=== PATIENT | female | born 1940 | race Caucasian/White ===

== ENCOUNTER → 2016-12-10 | Outpatient (CLI) | payer OTHER ==
[~2016-12-10] MED LIST: ACETAZOLAMIDE250 MG PO; ADVAIR 500-501 EACH INH; ALBUTEROL0.63 MG/3 INH; CALCITRIOL0.25 MCG PO; CELEBREX 200MG200 MG PO; CLARITIN10 M2 PO; CORGARD 40MG TA40 MG PO; COZAAR100 MG PO; DIAMOX 250 MG250 MG PO; ELIQUIS5 MG PO; FERROUS SULFAT325 M2 PO; HYDRALAZINE HCL25 MG PO; KLOR-CON M2020 MEQ PO; LASIX 40 MG TAB40 MG PO; LASIX20 MG PO; LASIX40 MG PO; LEVAQUIN750 MG PO; LISINOPRIL10 MG PO; LOPID TAB 600600 MG PO; LORTAB 5-325 M1 EACH PO; LOSARTAN POTAS100 MG PO; METOPROLOL TART50 MG PO; MIRALAX17 GM PO; MONTELUKAST SOD10 MG PO; MULTAQ400 MG PO; NADOLOL40 MG PO; NEURONTIN 300300 MG PO; NEURONTIN600 MG PO; NORCO 5-325 TA1 EACH PO; NORVASC 5 MG TAB5 MG PO; NORVASC10 MG PO; OMEPRAZOLE40 MG PO; PRILOSEC OTC20 MG PO; PROAIR HFA8.5 GM INH; SPIRIVA18 MCG INH; SULAMYD 10% OP15 ML OP; THERAGRAN M TAB1 EA PO; TYLENOL 325MG325 MG PO; ULTRAM50 MG PO; VENTOLIN/PROVE0.5 ML INH; ZESTRIL20 MG PO
== END ==
LOC: MAMO 09:20
DX: Z12.31 Encounter for screening mammogram for malignant neoplasm of breast (principal); Z80.3 Family history of malignant neoplasm of breast
CPT/HCPCS: 36600; 82803; G0202

== ENCOUNTER 2017-01-25 17:48 | Emergency (ER) | payer OTHER ==
[~2017-01-25 17:48] MED LIST changes: -ACETAZOLAMIDE250 MG PO; -ALBUTEROL0.63 MG/3 INH; -CLARITIN10 M2 PO; -CORGARD 40MG TA40 MG PO; -LEVAQUIN750 MG PO; -LOSARTAN POTAS100 MG PO; -MIRALAX17 GM PO; -NORCO 5-325 TA1 EACH PO; -OMEPRAZOLE40 MG PO; -SULAMYD 10% OP15 ML OP; -ZESTRIL20 MG PO
[2017-01-25 19:21] LABS: RED BLOOD COUNT 3.6 M/UL (4.00-5.10); WHITE BLOOD COUNT 9.8 K/UL (4.5-11.0)
[2017-03-11] MEDS ORDERED: LOSARTAN POTAS100 MG PO (09:48)
[2017-03-11] MEDS ORDERED: CORGARD 40MG TA40 MG PO (09:49)
[2017-03-15] MEDS ORDERED: LEVAQUIN750 MG PO (17:04)
== END 2017-01-25 20:45 | disposition home or self-care (01) ==
LOC: ER1 17:48
PROVIDERS: Physician Assistant
DX: N17.9 Acute kidney failure, unspecified (principal); I12.9 Hypertensive chronic kidney disease with stage 1 through stage 4 chronic kidney disease, or unspecified chronic kidney disease; N18.9 Chronic kidney disease, unspecified; N39.0 Urinary tract infection, site not specified; J18.9 Pneumonia, unspecified organism; J44.9 Chronic obstructive pulmonary disease, unspecified; Z88.0 Allergy status to penicillin; Z99.81 Dependence on supplemental oxygen
CPT/HCPCS: 36415; 70450; 71010; 80053; 81001; 85025; 87077; 87081; 87086; 87186; 87880; 96365; 99284; J0696; J7050

== ENCOUNTER 2017-01-29 15:48 | Inpatient (IN) | payer OTHER ==
[~2017-01-29] VITALS: Ht 172.7 cm; Wt 112.7 kg
[2017-01-29 18:49] LABS: HEMOGLOBIN 10.9 gm/dl (12.3-15.3); RED BLOOD COUNT 3.64 M/UL (4.00-5.10); WHITE BLOOD COUNT 5.8 K/UL (4.5-11.0)
[2017-01-30] MEDS ORDERED: NORCO 5-325 TA1 EACH PO (01:31)
[2017-01-30] MEDS ORDERED: KLOR-CON M2020 MEQ PO (01:32)
[2017-01-30] MEDS ORDERED: OMEPRAZOLE40 MG PO (01:32)
[2017-01-30] MEDS ORDERED: CLARITIN10 M2 PO (01:32)
[2017-01-30] MEDS ORDERED: ALBUTEROL0.63 MG/3 INH (01:34)
[2017-01-30] MEDS ORDERED: SULAMYD 10% OP15 ML OP (01:35)
[2017-01-30] MEDS ORDERED: ACETAZOLAMIDE250 MG PO (01:36)
[2017-01-30] MEDS ORDERED: PROAIR HFA8.5 GM INH (01:36)
[2017-01-30] MEDS ORDERED: NADOLOL40 MG PO (01:36)
[2017-01-30] MEDS ORDERED: ZESTRIL20 MG PO (01:37)
[2017-01-30] MEDS ORDERED: HYDRALAZINE HCL25 MG PO (01:37)
[2017-01-30] MEDS ORDERED: MIRALAX17 GM PO (01:38)
[2017-01-30 07:45] LABS: HEMOGLOBIN 10.5 gm/dl (12.3-15.3); RED BLOOD COUNT 3.51 M/UL (4.00-5.10); WHITE BLOOD COUNT 4.4 K/UL (4.5-11.0)
[2017-02-03 06:06] LABS: HEMOGLOBIN 10.2 gm/dl (12.3-15.3); RED BLOOD COUNT 3.43 M/UL (4.00-5.10)
[2017-02-04 05:10] LABS: HEMOGLOBIN 10.5 gm/dl (12.3-15.3); RED BLOOD COUNT 3.5 M/UL (4.00-5.10)
[2017-03-11] MEDS ORDERED: LOSARTAN POTAS100 MG PO (09:48)
[2017-03-11] MEDS ORDERED: CORGARD 40MG TA40 MG PO (09:49)
[2017-03-15] MEDS ORDERED: LEVAQUIN750 MG PO (17:04)
== END 2017-02-04 18:50 | disposition home or self-care (01) | DRG 291 ==
LOC: ER1 15:48 → ZEROF 21:00 → M/S 21:00
PROVIDERS: Emergency Medicine; Internal Medicine; ADMIT Internal Medicine
PROC: 5A09357 Assistance with Respiratory Ventilation, Less than 24 Consecutive Hours, Continuous Positive Airway Pressure (ICD-10-PCS; principal; 2017-01-29)
DX: I11.0 Hypertensive heart disease with heart failure (principal); J18.9 Pneumonia, unspecified organism; N17.9 Acute kidney failure, unspecified; J44.0 Chronic obstructive pulmonary disease with (acute) lower respiratory infection; E87.1 Hypo-osmolality and hyponatremia; I50.33 Acute on chronic diastolic (congestive) heart failure; D64.9 Anemia, unspecified; E78.5 Hyperlipidemia, unspecified; T50.1X5A Adverse effect of loop [high-ceiling] diuretics, initial encounter; Z77.22 Contact with and (suspected) exposure to environmental tobacco smoke (acute) (chronic); Z95.0 Presence of cardiac pacemaker; Z79.01 Long term (current) use of anticoagulants; Z79.891 Long term (current) use of opiate analgesic; Z79.899 Other long term (current) drug therapy; Z88.0 Allergy status to penicillin; Z91.041 Radiographic dye allergy status; Z90.710 Acquired absence of both cervix and uterus; Z90.49 Acquired absence of other specified parts of digestive tract; Z98.890 Other specified postprocedural states
CPT/HCPCS: ECHO; 36415; 36600; 71010; 80048; 80053; 82550; 82553; 82803; 83735; 83874; 83880; 84100; 84439; 84443; 84484; 85025; 85027; 87040; 93005; 93306; 94640; 94660; 94664; 96365; 96375; 99285; J1940; J1956; J2930

== ENCOUNTER 2020-09-02 08:12 | Inpatient (IN) | payer OTHER ==
[~2020-09-02] VITALS: Ht 165.1 cm; Wt 110.8 kg
[~2020-09-02 08:12] MED LIST changes: +ACETAZOLAMIDE250 MG PO; +ALBUTEROL2.5 MG/3 M INH; +ARTIFICIAL TEA1 EACH OP; +BISCOLAX10 MG PR; +BUMETANIDE2 MG PO; +CLARITIN10 M2 PO; +COLACE 100MG C100 MG PO; +CORGARD 40MG TA40 MG PO; +DURAGESIC1 EACH TD; +ELIQUIS2.5 MG PO; -ELIQUIS5 MG PO; +ENULOSE10 GM/15 M PO; +FLONASE 0.05% N16 GM; +FLORASTOR250 MG PO; +HYDRALAZINE HCL50 MG PO; +K-DUR TAB 20 M20 MEQ PO; +LEVAQUIN750 MG PO; +LIDOCAINE PAIN1 EACH TP; +LIFESTYLECOMFO1 EACH MC; +LOPRESSOR 25 MG25 MG PO; +LOSARTAN POTAS100 MG PO; -METOPROLOL TART50 MG PO; +MIRALAX17 GM PO; +MIRTAZAPINE7.5 MG PO; +MULTAQ 400 MG400 MG PO; +NEURONTIN 100100 MG PO; -NEURONTIN 300300 MG PO; +NEURONTIN400 MG PO; +NORCO 5-325 TA1 EACH PO; +OMEPRAZOLE40 MG PO; +PERFOROMIS20 MCG/21 INH; +PREDFORTE OP SUS5 ML OD; +PRINIVIL20 MG PO; +PULMICORT0.5 MG/21 INH; +ROCEPHIN 1 GM AD1 GM IV; +SENNA-S 8.6-501 EACH PO; +SULAMYD 10% OP15 ML OP; +TESSALON PERLE100 MG PO; +TOVIAZ4 MG PO; +TYLENOL 500 MG500 MG PO; +TYLENOL 650 MG650 MG PR; +Voltaren Gel 1% TOP; +ZAROXOLYN/DIULO5 MG PO; +ZESTRIL20 MG PO; +ZOFRAN4 MG PO
[2020-09-02 09:01] LABS: HEMOGLOBIN 10.9 gm/dl (12.3-15.3); RED BLOOD COUNT 3.5 M/UL (4.00-5.10); WHITE BLOOD COUNT 5.5 K/UL (4.5-11.0)
[2020-09-02 09:34] LABS: BUN/CREATININE RATIO 23 (0-10)
[2020-09-02] MEDS ORDERED: SPIRIVA HANDIH18 MCG INH (09:39)
[2020-09-02] MEDS ORDERED: [UNRECOGNIZED DRUG - OTHER] TOP (12:32)
[2020-09-02] MEDS ORDERED: K-DUR TAB 20 M20 MEQ PO (12:33)
[2020-09-02] MEDS ORDERED: DICLOFENAC SOD100 GM TOP (22:22)
[2020-09-02] MEDS ORDERED: KLOR-CON M2020 MEQ PO (22:56)
[2020-09-02] MEDS ORDERED: IPRATROPIU0.2 MG/1 M NEB (23:08)
[2020-09-03 04:04] LABS: HEMOGLOBIN 10.4 gm/dl (12.3-15.3); RED BLOOD COUNT 3.34 M/UL (4.00-5.10); WHITE BLOOD COUNT 4.8 K/UL (4.5-11.0)
[2020-09-04 02:40] LABS: HEMOGLOBIN 10.4 gm/dl (12.3-15.3); RED BLOOD COUNT 3.33 M/UL (4.00-5.10); WHITE BLOOD COUNT 5.7 K/UL (4.5-11.0)
[2020-09-05 02:20] LABS: HEMOGLOBIN 10.4 gm/dl (12.3-15.3); RED BLOOD COUNT 3.35 M/UL (4.00-5.10); WHITE BLOOD COUNT 5.6 K/UL (4.5-11.0)
[2020-09-05] MEDS ORDERED: BUMETANIDE1 MG PO (11:27)
== END 2020-09-05 16:23 | DRG 291 ==
LOC: ER1 08:12 → CDU 11:51 → PROG CARE 20:30 → M/S 09-04 20:00
PROVIDERS: Family Medicine; Physician Assistant Medical; ADMIT Internal Medicine
PROC: B24BZZZ Ultrasonography of Heart with Aorta (ICD-10-PCS; principal; 2020-09-02)
DX: I11.0 Hypertensive heart disease with heart failure (principal); J96.22 Acute and chronic respiratory failure with hypercapnia; J96.21 Acute and chronic respiratory failure with hypoxia; B02.29 Other postherpetic nervous system involvement; E66.2 Morbid (severe) obesity with alveolar hypoventilation; F11.20 Opioid dependence, uncomplicated; Z20.822 Contact with and (suspected) exposure to COVID-19; I50.33 Acute on chronic diastolic (congestive) heart failure; E78.5 Hyperlipidemia, unspecified; I49.5 Sick sinus syndrome; I48.0 Paroxysmal atrial fibrillation; E87.6 Hypokalemia; G89.29 Other chronic pain; D50.9 Iron deficiency anemia, unspecified; E55.9 Vitamin D deficiency, unspecified; K21.9 Gastro-esophageal reflux disease without esophagitis; Z99.81 Dependence on supplemental oxygen; Z90.49 Acquired absence of other specified parts of digestive tract; Z95.0 Presence of cardiac pacemaker; Z98.41 Cataract extraction status, right eye; Z88.5 Allergy status to narcotic agent; Z88.0 Allergy status to penicillin; Z91.041 Radiographic dye allergy status; Z82.3 Family history of stroke; Z80.1 Family history of malignant neoplasm of trachea, bronchus and lung; Z68.39 Body mass index [BMI] 39.0-39.9, adult; Z86.718 Personal history of other venous thrombosis and embolism; Z80.3 Family history of malignant neoplasm of breast; Z79.01 Long term (current) use of anticoagulants; Z79.899 Other long term (current) drug therapy
CPT/HCPCS: ECHO; 36415; 36600; 71045; 71046; 80048; 80053; 82550; 82553; 82803; 83605; 83735; 83874; 83880; 84132; 84439; 84443; 84484; 85025; 85027; 85610; 87040; 93005; 93306; 94640; 94660; 94664; 94760; 96374; 96375; 96376; 97162; 97166; 99285; J2185; J2930; U0002

== ENCOUNTER 2020-11-02 21:25 | Inpatient (IN) | payer OTHER ==
[~2020-11-02] VITALS: Ht 177.8 cm; Wt 112.7 kg
[~2020-11-02 21:25] MED LIST changes: -ALDACTONE 25MG25 MG PO; -CETAPHIL226 GM TP; -ICAPS MV TABLE1 EACH PO; -ICAPS TABLET1 EACH PO; -IPRATROPIU0.2 MG/1 M INH; -K-TAB ER20 MEQ PO; -NITROFURANTOIN100 MG PO; -PATADAY2.5 ML EYEBOTH; -PEPCID20 MG PO; -TYLOPHEN500 MG PO; -ZINC OXIDE28 GM TOP
[2020-11-02 21:58] LABS: HEMOGLOBIN 10.9 gm/dl (12.3-15.3); RED BLOOD COUNT 3.55 M/UL (4.00-5.10); WHITE BLOOD COUNT 6.3 K/UL (4.5-11.0)
[2020-11-03 04:47] LABS: RED BLOOD COUNT 3.58 M/UL (4.00-5.10); WHITE BLOOD COUNT 7.7 K/UL (4.5-11.0)
[2020-11-03 05:01] LABS: BUN/CREATININE RATIO 22 (0-10)
[2020-11-03] MEDS ORDERED: ZINC OXIDE28 GM TOP (12:27)
[2020-11-03] MEDS ORDERED: PEPCID20 MG PO (12:27)
--- NOTE | 2020-11-03 18:13 | NUR ---
PHARMACIST SHARI NOTIFIED ME THAT PT WAS BEING STARTED ON ZOSYN PER MD CHOICE BC OF CONFLICT WITH [facility] AND PT HOME MED. SHARI STATED THAT PT DID HAVE PCN ALLERGY LISTED BUT HE CONTACTED [place] WHO INFORMED HIM THAT THE PCN ADVERSE REACTION THAT PT HAD WAS ONLY A RASH. MD MADE AWARE BY SHARI. OK TO GIVE ZOSYN PER AND SHARI. SHARI SUGGESTED STARTING MEDICATIONAT SLOW RATE OF 20ML/HR AND SLOWLY INCREASING TO DESIRED RATE. THIS WAS DONE BY ME. I ALSO SAT IN ROOM WITH PATIENT DURIN FIRST HALF HOUR OF GETTING ABX TO MONITOR FOR ALLERGIC REACTION. THERE WAS NONE. NO RASH NOTED. NO PT COMPLAINTS. WCTM .
[2020-11-03] MEDS ORDERED: ICAPS MV TABLE1 EACH PO (22:43)
[2020-11-04] MEDS ORDERED: ACETAZOLAMIDE250 MG PO (11:02)
== END 2020-11-04 17:59 | disposition home or self-care (01) | DRG 291 ==
LOC: ER1 21:25 → PROG CARE 11-03 01:25 → CDU 11-03 01:25 → PROG CARE 11-03 11:13
PROVIDERS: Internal Medicine; Preventive Medicine Occupational Medicine; ADMIT Internal Medicine
PROC: 5A09357 Assistance with Respiratory Ventilation, Less than 24 Consecutive Hours, Continuous Positive Airway Pressure (ICD-10-PCS; principal; 2020-11-03)
DX: I13.0 Hypertensive heart and chronic kidney disease with heart failure and stage 1 through stage 4 chronic kidney disease, or unspecified chronic kidney disease (principal); I50.33 Acute on chronic diastolic (congestive) heart failure; J96.21 Acute and chronic respiratory failure with hypoxia; J96.22 Acute and chronic respiratory failure with hypercapnia; G93.41 Metabolic encephalopathy; J18.9 Pneumonia, unspecified organism; N17.9 Acute kidney failure, unspecified; J44.0 Chronic obstructive pulmonary disease with (acute) lower respiratory infection; I48.0 Paroxysmal atrial fibrillation; E78.5 Hyperlipidemia, unspecified; N18.30 Chronic kidney disease, stage 3 unspecified; K21.9 Gastro-esophageal reflux disease without esophagitis; Z20.822 Contact with and (suspected) exposure to COVID-19; E66.01 Morbid (severe) obesity due to excess calories; D69.6 Thrombocytopenia, unspecified; Z86.718 Personal history of other venous thrombosis and embolism; Z79.01 Long term (current) use of anticoagulants; Z99.81 Dependence on supplemental oxygen; Z90.49 Acquired absence of other specified parts of digestive tract; Z98.41 Cataract extraction status, right eye; Z98.890 Other specified postprocedural states; Z88.0 Allergy status to penicillin; Z88.6 Allergy status to analgesic agent; Z91.041 Radiographic dye allergy status; Z66 Do not resuscitate
CPT/HCPCS: 0240U; 36600; 51702; 70450; 71045; 80048; 80053; 80307; 81001; 82140; 82550; 82553; 82607; 82746; 82803; 83605; 83690; 83735; 83874; 83880; 84484; 85025; 85652; 86140; 87086; 93005; 94640; 94660; 94664; 94760; 96374; 96375; 99285; J1120; J2543; J7030

== ENCOUNTER → 2020-11-02 | Outpatient (CLI) | payer OTHER ==
[~2020-11-02] MED LIST changes: +ALDACTONE 25MG25 MG PO; +BUMETANIDE1 MG PO; +CETAPHIL226 GM TP; +DICLOFENAC SOD100 GM TOP; +ICAPS MV TABLE1 EACH PO; +ICAPS TABLET1 EACH PO; +IPRATROPIU0.2 MG/1 M INH; +IPRATROPIU0.2 MG/1 M NEB; +K-TAB ER20 MEQ PO; +NITROFURANTOIN100 MG PO; +PATADAY2.5 ML EYEBOTH; +PEPCID20 MG PO; +SPIRIVA HANDIH18 MCG INH; +TYLOPHEN500 MG PO; +ZINC OXIDE28 GM TOP; +[UNRECOGNIZED DRUG - OTHER] TOP
== END ==
LOC: LBRF 18:57
DX: R30.9 Painful micturition, unspecified (principal)
CPT/HCPCS: 81001; 87086

== ENCOUNTER 2020-11-18 18:32 | Inpatient (IN) | payer OTHER ==
[~2020-11-18] VITALS: Ht 165.1 cm; Wt 111.6 kg
[~2020-11-18 18:32] MED LIST changes: +ICAPS MV TABLE1 EACH PO; +PEPCID20 MG PO; +ZINC OXIDE28 GM TOP
[2020-11-18 19:29] LABS: HEMOGLOBIN 11.3 gm/dl (12.3-15.3); RED BLOOD COUNT 3.62 M/UL (4.00-5.10); WHITE BLOOD COUNT 7.2 K/UL (4.5-11.0)
[2020-11-18 20:41] LABS: BUN/CREATININE RATIO 21 (0-10)
[2020-11-18] MEDS ORDERED: CETAPHIL226 GM TP (21:26)
[2020-11-18] MEDS ORDERED: MULTAQ400 MG PO (21:36)
[2020-11-19 02:20] LABS: RED BLOOD COUNT 3.32 M/UL (4.00-5.10); WHITE BLOOD COUNT 6.5 K/UL (4.5-11.0)
[2020-11-20 02:44] LABS: HEMOGLOBIN 9.7 gm/dl (12.3-15.3); RED BLOOD COUNT 3.15 M/UL (4.00-5.10); WHITE BLOOD COUNT 5.3 K/UL (4.5-11.0)
[2020-11-25] MEDS ORDERED: K-DUR TAB 20 M20 MEQ PO (10:48)
--- NOTE | 2020-11-25 14:55 | NUR ---
14:25 REPORT CALLED TO PHYLLIS MILLER--RN, AMBULANCE ALSO CALLED AT THIS TIME FOR TRANSPORT
== END 2020-11-25 16:25 | DRG 291 ==
LOC: ER1 18:32 → PROG CARE 21:10 → CDU 21:10 → PROG CARE 23:46
PROVIDERS: Family Medicine; Internal Medicine; ADMIT Internal Medicine
DX: I13.0 Hypertensive heart and chronic kidney disease with heart failure and stage 1 through stage 4 chronic kidney disease, or unspecified chronic kidney disease (principal); I50.33 Acute on chronic diastolic (congestive) heart failure; J96.21 Acute and chronic respiratory failure with hypoxia; J96.22 Acute and chronic respiratory failure with hypercapnia; N30.00 Acute cystitis without hematuria; Z68.41 Body mass index [BMI] 40.0-44.9, adult; I48.0 Paroxysmal atrial fibrillation; B96.20 Unspecified Escherichia coli [E. coli] as the cause of diseases classified elsewhere; E87.6 Hypokalemia; E78.5 Hyperlipidemia, unspecified; K21.9 Gastro-esophageal reflux disease without esophagitis; Z66 Do not resuscitate; F32.9 Major depressive disorder, single episode, unspecified; E66.01 Morbid (severe) obesity due to excess calories; N18.30 Chronic kidney disease, stage 3 unspecified; Z95.0 Presence of cardiac pacemaker; J44.9 Chronic obstructive pulmonary disease, unspecified; E87.5 Hyperkalemia
CPT/HCPCS: 0240U; 36415; 36600; 51702; 71045; 80048; 80053; 81001; 82550; 82553; 82803; 82962; 83605; 83735; 83874; 83880; 84132; 84439; 84443; 84484; 85025; 85027; 85610; 87077; 87086; 87186; 93005; 94640; 94644; 94660; 94760; 96365; 96375; 99285; J0696; J2405; J3475; J3480

== ENCOUNTER → 2020-12-05 | Outpatient (CLI) | payer OTHER ==
[~2020-12-05] MED LIST changes: +ALDACTONE 25MG25 MG PO; +CETAPHIL226 GM TP; +ICAPS TABLET1 EACH PO; +IPRATROPIU0.2 MG/1 M INH; +K-TAB ER20 MEQ PO; +NITROFURANTOIN100 MG PO; +PATADAY2.5 ML EYEBOTH; +TYLOPHEN500 MG PO
== END ==
LOC: CT 12:28
DX: R91.8 Other nonspecific abnormal finding of lung field (principal); J90 Pleural effusion, not elsewhere classified; J18.1 Lobar pneumonia, unspecified organism; I71.4 Abdominal aortic aneurysm, without rupture
CPT/HCPCS: 71250

== ENCOUNTER 2020-12-08 02:17 | Observation (INO) | payer OTHER ==
[~2020-12-08] VITALS: Ht 165.1 cm; Wt 112.5 kg
[~2020-12-08 02:17] MED LIST changes: -ALDACTONE 25MG25 MG PO; -ICAPS TABLET1 EACH PO; -IPRATROPIU0.2 MG/1 M INH; -K-TAB ER20 MEQ PO; -NITROFURANTOIN100 MG PO; -PATADAY2.5 ML EYEBOTH; -TYLOPHEN500 MG PO
[2020-12-08 02:35] LABS: HEMOGLOBIN 10.2 gm/dl (12.3-15.3); RED BLOOD COUNT 3.37 M/UL (4.00-5.10); WHITE BLOOD COUNT 4.5 K/UL (4.5-11.0)
[2020-12-08 04:16] LABS: BUN/CREATININE RATIO 20 (0-10)
[2020-12-08] MEDS ORDERED: SPIRIVA HANDIH18 MCG INH (10:23)
[2020-12-08] MEDS ORDERED: [UNRECOGNIZED DRUG - OTHER] TOP (10:25)
[2020-12-08] MEDS ORDERED: PATADAY2.5 ML EYEBOTH (21:18)
[2020-12-08] MEDS ORDERED: ICAPS TABLET1 EACH PO (21:49)
[2020-12-08] MEDS ORDERED: LIDOCAINE PAIN1 EACH TP (21:51)
--- NOTE | 2020-12-09 05:29 | NUR ---
RECIEVED CRITICIAL POTASSIUM LEVEL OF 2.8, PT HAD POTASSIUM PROTOCOL ORDERED. PROTOCOL INITIATED AT THIS TIME
[2020-12-09] MEDS ORDERED: K-DUR TAB 20 M20 MEQ PO (13:29)
[2020-12-09] MEDS ORDERED: ALDACTONE 25MG25 MG PO (13:29)
[2020-12-09] MEDS ORDERED: LISINOPRIL10 MG PO (13:29)
== END 2020-12-10 15:12 ==
LOC: ER1 02:17 → CDU 04:23 → MED SURG 4 14:32
PROVIDERS: Internal Medicine Infectious Disease; Physician Assistant; ADMIT Internal Medicine
DX: E87.6 Hypokalemia (principal); I13.0 Hypertensive heart and chronic kidney disease with heart failure and stage 1 through stage 4 chronic kidney disease, or unspecified chronic kidney disease; N18.30 Chronic kidney disease, stage 3 unspecified; I50.32 Chronic diastolic (congestive) heart failure; I48.0 Paroxysmal atrial fibrillation; J44.9 Chronic obstructive pulmonary disease, unspecified; J96.11 Chronic respiratory failure with hypoxia; E78.5 Hyperlipidemia, unspecified; K21.9 Gastro-esophageal reflux disease without esophagitis; I49.5 Sick sinus syndrome; F41.9 Anxiety disorder, unspecified; F32.9 Major depressive disorder, single episode, unspecified; N39.0 Urinary tract infection, site not specified; E66.2 Morbid (severe) obesity with alveolar hypoventilation; Z68.41 Body mass index [BMI] 40.0-44.9, adult; Z20.822 Contact with and (suspected) exposure to COVID-19; Z95.0 Presence of cardiac pacemaker; Z77.22 Contact with and (suspected) exposure to environmental tobacco smoke (acute) (chronic); Z99.81 Dependence on supplemental oxygen; Z86.718 Personal history of other venous thrombosis and embolism; Z79.01 Long term (current) use of anticoagulants; Z88.0 Allergy status to penicillin; Z88.1 Allergy status to other antibiotic agents; Z88.5 Allergy status to narcotic agent; Z91.010 Allergy to peanuts; Z91.013 Allergy to seafood; Z91.041 Radiographic dye allergy status
CPT/HCPCS: 36415; 71045; 80048; 80053; 82550; 82553; 82962; 83735; 83874; 84132; 84484; 85025; 85610; 85730; 93005; 94640; 94660; 94664; 94760; 96365; 97161; 97166; 99285; G0378; J3480; U0002

== ENCOUNTER 2020-12-13 18:23 | Inpatient (IN) | payer OTHER ==
[~2020-12-13] VITALS: Ht 165.1 cm; Wt 112.0 kg
[~2020-12-13 18:23] MED LIST changes: +ALDACTONE 25MG25 MG PO; +ICAPS TABLET1 EACH PO; +PATADAY2.5 ML EYEBOTH
[2020-12-13 19:02] LABS: RED BLOOD COUNT 3.29 M/UL (4.00-5.10); WHITE BLOOD COUNT 5.3 K/UL (4.5-11.0)
[2020-12-13 19:26] LABS: BUN/CREATININE RATIO 18 (0-10)
[2020-12-13] MEDS ORDERED: TYLOPHEN500 MG PO (23:13)
[2020-12-13] MEDS ORDERED: ALBUTEROL2.5 MG/3 M INH (23:15)
[2020-12-13] MEDS ORDERED: IPRATROPIU0.2 MG/1 M INH (23:19)
[2020-12-14 06:22] LABS: HEMOGLOBIN 9.5 gm/dl (12.3-15.3); RED BLOOD COUNT 3.12 M/UL (4.00-5.10)
[2020-12-15 05:19] LABS: HEMOGLOBIN 9.4 gm/dl (12.3-15.3); RED BLOOD COUNT 3.06 M/UL (4.00-5.10); WHITE BLOOD COUNT 4.2 K/UL (4.5-11.0)
[2020-12-17 03:35] LABS: HEMOGLOBIN 8.7 gm/dl (12.3-15.3); RED BLOOD COUNT 2.92 M/UL (4.00-5.10)
[2020-12-17] MEDS ORDERED: K-TAB ER20 MEQ PO (12:02)
[2020-12-17] MEDS ORDERED: BUMETANIDE1 MG PO (12:02)
[2020-12-17] MEDS ORDERED: NITROFURANTOIN100 MG PO (12:02)
== END 2020-12-17 17:27 | DRG 291 ==
LOC: ER1 18:23 → CDU 21:05 → CCU 21:05 → M/S 21:05 → CCU 22:54 → M/S 12-15 15:48
PROVIDERS: Emergency Medicine; Internal Medicine; ADMIT Internal Medicine
DX: I13.0 Hypertensive heart and chronic kidney disease with heart failure and stage 1 through stage 4 chronic kidney disease, or unspecified chronic kidney disease (principal); J96.22 Acute and chronic respiratory failure with hypercapnia; G92 Toxic encephalopathy; I50.33 Acute on chronic diastolic (congestive) heart failure; E66.2 Morbid (severe) obesity with alveolar hypoventilation; J44.1 Chronic obstructive pulmonary disease with (acute) exacerbation; N30.00 Acute cystitis without hematuria; Z68.41 Body mass index [BMI] 40.0-44.9, adult; E87.6 Hypokalemia; Z66 Do not resuscitate; I48.91 Unspecified atrial fibrillation; I49.5 Sick sinus syndrome; N18.30 Chronic kidney disease, stage 3 unspecified; F32.9 Major depressive disorder, single episode, unspecified; K21.9 Gastro-esophageal reflux disease without esophagitis; E78.5 Hyperlipidemia, unspecified; T40.605A Adverse effect of unspecified narcotics, initial encounter; Z96.611 Presence of right artificial shoulder joint; Z82.3 Family history of stroke; Y92.89 Other specified places as the place of occurrence of the external cause; Z90.49 Acquired absence of other specified parts of digestive tract; Z95.0 Presence of cardiac pacemaker; Z98.41 Cataract extraction status, right eye; Z74.01 Bed confinement status; Z86.718 Personal history of other venous thrombosis and embolism; Z80.1 Family history of malignant neoplasm of trachea, bronchus and lung; Z88.6 Allergy status to analgesic agent; Z88.0 Allergy status to penicillin
CPT/HCPCS: 36415; 36600; 51702; 71045; 80048; 80053; 81001; 82550; 82553; 82803; 82962; 83036; 83874; 84132; 84484; 85025; 93005; 94640; 94660; 94664; 94760; 99285; A6212; J0696; J1120; J1940; J2310; J3480; U0002

== ENCOUNTER 2020-12-21 18:04 | Emergency (ER) | payer OTHER ==
[~2020-12-21 18:04] MED LIST changes: +IPRATROPIU0.2 MG/1 M INH; +K-TAB ER20 MEQ PO; +NITROFURANTOIN100 MG PO; +TYLOPHEN500 MG PO
[2020-12-21 20:04] LABS: HEMOGLOBIN 9.7 gm/dl (12.3-15.3); RED BLOOD COUNT 3.18 M/UL (4.00-5.10); WHITE BLOOD COUNT 4.2 K/UL (4.5-11.0)
[2020-12-21 20:21] LABS: BUN/CREATININE RATIO 18 (0-10)
== END 2020-12-21 23:35 | disposition home or self-care (01) ==
LOC: ER1 18:04
PROVIDERS: Family Medicine
DX: G47.30 Sleep apnea, unspecified (principal); J44.9 Chronic obstructive pulmonary disease, unspecified; E66.01 Morbid (severe) obesity due to excess calories; D64.9 Anemia, unspecified; J96.11 Chronic respiratory failure with hypoxia; J90 Pleural effusion, not elsewhere classified; K21.9 Gastro-esophageal reflux disease without esophagitis; Z88.0 Allergy status to penicillin; Z91.041 Radiographic dye allergy status; Z79.01 Long term (current) use of anticoagulants; Z79.899 Other long term (current) drug therapy; Z99.81 Dependence on supplemental oxygen
CPT/HCPCS: 36600; 71045; 80053; 81001; 82550; 82553; 82803; 83605; 83874; 84484; 85025; 93005; 99284

== ENCOUNTER 2020-12-31 08:43 | Emergency (ER) | payer OTHER ==
[2020-12-31 09:36] LABS: HEMOGLOBIN 10.5 gm/dl (12.3-15.3); RED BLOOD COUNT 3.42 M/UL (4.00-5.10); WHITE BLOOD COUNT 4.2 K/UL (4.5-11.0)
== END 2020-12-31 14:41 | disposition other institution (70) ==
LOC: ER1 08:43
PROVIDERS: Physician Assistant Medical
DX: R29.810 Facial weakness (principal); R53.1 Weakness; R20.2 Paresthesia of skin; J44.9 Chronic obstructive pulmonary disease, unspecified; Z20.822 Contact with and (suspected) exposure to COVID-19; I48.91 Unspecified atrial fibrillation; I50.9 Heart failure, unspecified; Z91.041 Radiographic dye allergy status; Z88.5 Allergy status to narcotic agent; Z88.0 Allergy status to penicillin; Z88.8 Allergy status to other drugs, medicaments and biological substances
CPT/HCPCS: 0240U; 70450; 80053; 81001; 85025; 99285

== ENCOUNTER 2021-01-18 22:08 | Inpatient (IN) | payer OTHER ==
[~2021-01-18] VITALS: Ht 157.5 cm; Wt 109.8 kg
[2021-01-19 01:04] LABS: HEMOGLOBIN 10.4 gm/dl (12.3-15.3); RED BLOOD COUNT 3.41 M/UL (4.00-5.10); WHITE BLOOD COUNT 10.4 K/UL (4.5-11.0)
[2021-01-19 04:56] LABS: HEMOGLOBIN 9.9 gm/dl (12.3-15.3); RED BLOOD COUNT 3.23 M/UL (4.00-5.10)
[2021-01-19 04:58] LABS: WHITE BLOOD COUNT 7.6 K/UL (4.5-11.0)
[2021-01-19 05:16] LABS: BUN/CREATININE RATIO 14 (0-10)
[2021-01-19] MEDS ORDERED: OMEPRAZOLE40 MG PO (14:44)
[2021-01-20 02:32] LABS: HEMOGLOBIN 9.4 gm/dl (12.3-15.3); RED BLOOD COUNT 3.16 M/UL (4.00-5.10); WHITE BLOOD COUNT 5.8 K/UL (4.5-11.0)
--- NOTE | 2021-01-20 23:58 | NUR ---
JEROMY DAWN IS A PATIENT ADMITTED WITH COPD AND PNEUMONIA. SHE IS A DNR, DNI, AND SHE WAS PLACED ON COMFORT MEASURES. SHE ON 01/20/21 AT APPROXIMATELY 2044. MARKETING DESIGNER WAS NOTIFIED OF HER AND DR. HOOKER WAS NOTIFIED AROUND [id number]. [facility] WAS CONTACTED AROUND [id number] ([facility] COORDINATOR KEVON DOBBS WITH ID:[id number]). [facility] STATED THAT SHE DID NOT QUALIFY FOR ORGAN DONATION. THE FAMILY HAD REQUESTED [facility] TO TRANSFER HER TO. IZABELLA GOMEZMIKI WAS THE NEXT OF KIN TO APPROVE THE TRANSFER. THE HOME WAS CALLED AROUND [id number].
--- NOTE | 2021-01-21 01:22 | NUR ---
PATIENT DISCHARGED FROM HOSPITAL AROUND [address] [facility].
== END 2021-01-20 21:00 | disposition expired | DRG 291 ==
LOC: ER1 22:08 → CDU 01-19 01:39 → PROG CARE 01-19 14:40
PROVIDERS: Family Medicine; Internal Medicine; ADMIT Internal Medicine
PROC: 5A09457 Assistance with Respiratory Ventilation, 24-96 Consecutive Hours, Continuous Positive Airway Pressure (ICD-10-PCS; principal; 2021-01-19)
DX: I13.0 Hypertensive heart and chronic kidney disease with heart failure and stage 1 through stage 4 chronic kidney disease, or unspecified chronic kidney disease (principal); J96.21 Acute and chronic respiratory failure with hypoxia; Z20.822 Contact with and (suspected) exposure to COVID-19; Z51.5 Encounter for palliative care; Z66 Do not resuscitate; T83.518A Infection and inflammatory reaction due to other urinary catheter, initial encounter; G93.41 Metabolic encephalopathy; I50.33 Acute on chronic diastolic (congestive) heart failure; J96.22 Acute and chronic respiratory failure with hypercapnia; E87.2 Acidosis; I48.20 Chronic atrial fibrillation, unspecified; E66.2 Morbid (severe) obesity with alveolar hypoventilation; Z68.41 Body mass index [BMI] 40.0-44.9, adult; N30.00 Acute cystitis without hematuria; J44.1 Chronic obstructive pulmonary disease with (acute) exacerbation; Y84.6 Urinary catheterization as the cause of abnormal reaction of the patient, or of later complication, without mention of misadventure at the time of the procedure; I49.5 Sick sinus syndrome; N18.30 Chronic kidney disease, stage 3 unspecified; I48.0 Paroxysmal atrial fibrillation; Z96.1 Presence of intraocular lens; F32.9 Major depressive disorder, single episode, unspecified; E78.5 Hyperlipidemia, unspecified; K21.9 Gastro-esophageal reflux disease without esophagitis; B96.5 Pseudomonas (aeruginosa) (mallei) (pseudomallei) as the cause of diseases classified elsewhere; D69.6 Thrombocytopenia, unspecified; D63.1 Anemia in chronic kidney disease; R53.81 Other malaise; Z79.01 Long term (current) use of anticoagulants; Z87.440 Personal history of urinary (tract) infections; Z74.01 Bed confinement status; Z86.718 Personal history of other venous thrombosis and embolism; Z95.0 Presence of cardiac pacemaker; Z98.42 Cataract extraction status, left eye; Z98.41 Cataract extraction status, right eye; Z88.5 Allergy status to narcotic agent; Z88.0 Allergy status to penicillin; Z91.041 Radiographic dye allergy status; Z80.1 Family history of malignant neoplasm of trachea, bronchus and lung; Z82.3 Family history of stroke; Z90.49 Acquired absence of other specified parts of digestive tract; Z90.710 Acquired absence of both cervix and uterus; Z99.81 Dependence on supplemental oxygen
CPT/HCPCS: 36415; 36600; 70450; 71045; 80048; 80053; 81001; 82550; 82553; 82803; 83605; 83735; 84100; 84484; 85025; 85027; 87040; 87077; 87086; 87186; 93005; 94640; 94660; 94664; 94760; 99285; C9113; J0696; J1120; J2060; J2270; J7030; U0002